=== PATIENT | male | born 1970 | race American Indian/Alaskan Native ===

== ENCOUNTER 2019-06-03 14:46 | Emergency (ER) | payer SELFPAY ==
[2019-06-03] MEDS ORDERED: SODIUM CHLORIDE 0.9% 1000 ML 1,000 ML IV ONE (15:45)
--- NOTE | 2019-06-03 15:47 | Emergency Department Report ---
ED General Adult HPI - General Chief complaint: Syncope Stated complaint: CONVULSIONS Time Seen by Provider: 06/03/19 15:37 Source: patient, EMS Mode of arrival: Stretcher Limitations: No Limitations - History of Present Illness Initial comments: Mr. Armando is a 48-year-old -[place] male who comes to the ER today after having what his friend reported to be a seizure. Patient states that he was told that he did this twice today. He denies incontinence. During one of his spells he did hit his left frontal skull and has soft tissue swelling. There is no laceration or abrasion. Patient is very clear that he did not have a trauma initially that resulted in these episodes. Patient denies any previous history of such episodes. In fact patient reports being otherwise healthy. Patient endorses occasional alcohol, cigarettes, and denies drugs. He is on no home medications. He does not have a primary care doctor. He's had no surgeries. NOK siblings -: Sudden, days(s) Location: head Worsens with: none Associated Symptoms: denies other symptoms Treatments Prior to Arrival: none - Related Data Home Medications Medication Instructions Recorded Confirmed Last Taken No Known Home Medications [No 06/03/19 06/03/19 Unknown Reported Home Medications] Allergies Allergy/AdvReac Type Severity Reaction Status Date / Time No Known Allergies Allergy Unverified 06/03/19 15:51 ED Review of Systems ROS: Stated complaint: CONVULSIONS Other details as noted in HPI Comment: All other systems reviewed and negative ED Past Medical Hx - Past Medical History Previous Medical History?: No Additional medical history: denies - Surgical History Past Surgical History?: No Additional Surgical History: denies - Family History Family history: other (MOM DEC CA AND DAD DEC TRAUMA) - Social History Smoking Status: Current Every Day Smoker Substance Use Type: Alcohol - Medications Home Medications: Home Medications Medication Instructions Recorded Confirmed Last Taken Type No Known Home Medications [No 06/03/19 06/03/19 Unknown History Reported Home Medications] ED Physical Exam - General Limitations: No Limitations General appearance: alert, in no apparent distress - Head Head exam: Present: atraumatic, normocephalic - Eye Eye exam: Present: normal appearance - ENT ENT exam: Present: mucous membranes moist - Neck Neck exam: Present: normal inspection - Respiratory Respiratory exam: Present: normal lung sounds bilaterally. Absent: respiratory distress - Cardiovascular Cardiovascular Exam: Present: regular rate, normal rhythm. Absent: systolic murmur, diastolic murmur, rubs, gallop - GI/Abdominal GI/Abdominal exam: Present: soft, normal bowel sounds - Rectal Rectal exam: Present: deferred - Extremities Exam Extremities exam: Present: normal inspection - Back Exam Back exam: Present: normal inspection - Neurological Exam Neurological exam: Present: alert, oriented X3 - Psychiatric Psychiatric exam: Present: normal affect, normal mood - Skin Skin exam: Present: warm, dry, intact, other (SWOLLEN AREA LEFT FRONTAL LOBE). Absent: rash ED Course Vital Signs 06/03/19 06/03/19 15:04 16:02 Temperature 97.8 F Pulse Rate 94 H 96 H Respiratory 18 17 Rate Blood Pressure 130/83 Blood Pressure 143/89 [Left] O2 Sat by Pulse 99 97 Oximetry ED Medical Decision Making - Lab Data Result diagrams: 06/03/19 16:05 06/03/19 16:05 - EKG Data EKG shows normal: sinus rhythm - Radiology Data Radiology results: report reviewed, image reviewed - Medical Decision Making Lab Results 06/03/19 06/03/19 Range/Units 16:05 16:05 WBC 6.3 (4.5-11.0) K/mm3 RBC 4.00 (3.65-5.03) M/mm3 Hgb 12.8 (11.8-15.2) gm/dl Hct 37.9 (35.5-45.6) % MCV 95 H (84-94) fl MCH 32 (28-32) pg MCHC 34 (32-34) % RDW 12.4 L (13.2-15.2) % Plt Count 172 (140-440) K/mm3 Lymph % (Auto) 5.9 L (13.4-35.0) % Keith % (Auto) 9.2 H (0.0-7.3) % Eos % (Auto) 0.0 (0.0-4.3) % Baso % (Auto) 0.6 (0.0-1.8) % Lymph # 0.4 L (1.2-5.4) K/mm3 Keith # 0.6 (0.0-0.8) K/mm3 Eos # 0.0 (0.0-0.4) K/mm3 Baso # 0.0 (0.0-0.1) K/mm3 Seg Neutrophils % 84.3 H (40.0-70.0) % Seg Neutrophils # 5.3 (1.8-7.7) K/mm3 Sodium 135 L (137-145) mmol/L Potassium 4.4 (3.6-5.0) mmol/L Chloride 98.0 (98-107) mmol/L Carbon Dioxide 24 (22-30) mmol/L Anion Gap 17 mmol/L BUN 10 (9-20) mg/dL Creatinine 0.9 (0.8-1.5) mg/dL Estimated GFR > 60 ml/min BUN/Creatinine Ratio 11 % Glucose 86 (75-100) mg/dL Calcium 9.4 (8.4-10.2) mg/dL Total Bilirubin 0.30 (0.1-1.2) mg/dL AST 29 (5-40) units/L ALT 21 (7-56) units/L Alkaline Phosphatase 86 (35-129) units/L Total Creatine Kinase 204 H (55-170) units/L CK-MB (CK-2) 2.2 (0.0-4.0) ng/mL CK-MB (CK-2) Rel Index 1.0 (0-4) Total Protein 7.8 (6.3-8.2) g/dL Albumin 4.2 (3.9-5) g/dL Albumin/Globulin Ratio 1.2 % labs noted CT noted decadron IV/ keppra IV [address] Jon [address] [facility] neurosurg paged- neurosurg not avail here at [facility] Transfer to ICU neurosurg.- per neurosurg at [facility] Pt updated on plan of care - Differential Diagnosis ro tbi/intracranial mass/arrhythmia Critical care attestation.: If time is entered above; I have spent that time in minutes in the direct care of this critically ill patient, excluding procedure time. ED Disposition Clinical Impression: Intracranial space-occupying lesion, New onset seizure Disposition: DC/TX- SHRT-TRM GEN HOSP IP Is pt being admited?: No Does the pt Need Aspirin: No Condition: Stable Time of Disposition: 18:24
[2019-06-03 16:32] LABS: Basophils % (Auto) 0.6 % (0.0-1.8); Hematocrit 37.9 % (35.5-45.6); Hemoglobin 12.8 gm/dl (11.8-15.2); Lymphocytes # (Auto) 0.4 K/mm3 (1.2-5.4); Lymphocytes % (Auto) 5.9 % (13.4-35.0); Mean Corpuscular HGB Conc 34 % (32-34); Mean Corpuscular Volume 95 fl (84-94); Monocytes # (Auto) 0.6 K/mm3 (0.0-0.8); Monocytes % (Auto) 9.2 % (0.0-7.3); Platelet Count 172 K/mm3 (140-440); Red Cell Distribution Width 12.4 % (13.2-15.2)
[2019-06-03 16:37] LABS: Creatine Kinase MB 2.2 ng/mL (0.0-4.0)
[2019-06-03 16:39] LABS: Alanine Aminotransferase 21 units/L (7-56); Albumin 4.2 g/dL (3.9-5); BUN/Creatinine Ratio 11; Blood Urea Nitrogen 10 mg/dL (9-20); Calcium 9.4 mg/dL (8.4-10.2); Hemolysis Index 15
--- NOTE | 2019-06-03 17:35 | Cat Scan Report ---
CT BRAIN: 06/03/2019 INDICATION / CLINICAL INFORMATION: SEIZURE. COMPARISON: None available. FINDINGS: BRAIN/INTRACRANIAL STRUCTURES: Unenhanced CT images of the brain were obtained. There is an area of v asogenic edema present in the left frontal lobe, over an area of approximately 3.5 cm. This may be as sociated with a more focal cortical or subcortical lesion, measuring 1.4 cm. The appearance would be worrisome for the presence of a brain lesion with associated vasogenic edema such as a primary brain neoplasm or metastasis. There is a questionable additional area of slight increased density in the higher left frontal subcor tical white matter, associated with a punctate calcification. There is no evidence of hemorrhage. There are no abnormal extra-axial fluid collections. EXTRACRANIAL STRUCTURES: Unremarkable. IMPRESSION: Left frontal vasogenic edema with possible associated lesion. Questionable second lesion in left fro ntal lobe. Follow-up with unenhanced and enhanced MRI recommended. All CT scans at this location are performed using dose reduction to ALARA by means of automated expos ure control. Signer Name: Nikolay Levin MD Signed: 06/03/2019 5:30 PM Workstation Name: [id number]
[2019-06-03] MEDS ORDERED: levETIRAcetam 1000 MG/NS 0.75% 1,000 MG/100 ML BAG IV ONE (18:10)
[2019-06-03] MEDS ORDERED: dexAMETHasone 4 MG/ML VIAL IV ONE (18:16)
--- NOTE | 2019-06-03 18:29 | XRay Report ---
CHEST 1 VIEW 06/03/2019 6:13 PM INDICATION / CLINICAL INFORMATION: SYNCOPE. COMPARISON: None available. FINDINGS: SUPPORT DEVICES: None. HEART / MEDIASTINUM: No significant abnormality. LUNGS / PLEURA: No significant pulmonary or pleural abnormality. No pneumothorax. ADDITIONAL FINDINGS: No significant additional findings. IMPRESSION: 1. No acute findings. Signer Name: Harman Ramos MD Signed: 06/03/2019 6:24 PM Workstation Name: [id number]
[2019-06-03 18:37] LABS: Bilirubin,Urine NEG (Negative); Blood,Urine SM (Negative); Color,Urine Yellow (Yellow); Mucus,Urine FEW /HPF
[2019-06-03 18:43] LABS: Amphetamine Screen,Urine PRESUMPTIVE NEGATIVE; Benzodiazepines Screen,Urine PRESUMPTIVE NEGATIVE; Cannabinoid Screen,Urine PRESUMPTIVE NEGATIVE; Cocaine Screen,Urine PRESUMPTIVE NEGATIVE; Methadone Screen,Urine PRESUMPTIVE NEGATIVE; Opiate Screen,Urine PRESUMPTIVE NEGATIVE
[2019-06-03 19:42] VITALS: BP 141/79
== END 2019-06-03 19:55 | disposition short-term general hospital (02) ==
LOC: ED 14:46
DX: R90.0 Intracranial space-occupying lesion found on diagnostic imaging of central nervous system (principal); R56.9 Unspecified convulsions; F17.200 Nicotine dependence, unspecified, uncomplicated; Z79.899 Other long term (current) drug therapy
CPT/HCPCS: 36415; 70450; 71045; 80053; 80307; 81001; 82550; 82553; 85025; 93005; 93010; 96361; 96365; 96375; 99285; J1100; J1953; J7030